=== PATIENT | male | born 1945 | race Hispanic/Latino ===

== ENCOUNTER 2016-06-05 12:32 | Day surgery (SDC) | payer MEDICARE ==
[~2016-06-05 12:32] MED LIST: CIPROFLOXACIN HCL 500 MG TABLET PO PRN
--- OUTSIDE RECORDS SUMMARY | 2016-06-05 12:36 | XMS REPORT | Continuity of Care Document ---
:1945 Author Organization [facility] ([facility]) Address [address] [place] [address] Phone [phone] Care Team Providers Name Role Phone Unavailable Primary Care Provider Unavailable Source Comments This disclosure is being made pursuant to the Care Everywhere program, applicable federal and state laws, and may not contain all informaitonavailable regarding this patient.[facility] ([facility]) Active Allergies and Adverse Reactions Not on File Current Medications Not on file Active Problems Not on file Social History Tobacco Use Types Packs/Day Years Used Date Never Assessed Plan of Care Health Maintenance Due Date Last Done Comments Hepatitis B Vaccine (1 of 3 - Primary Series) 1945 Tdap Vaccine 08/29/1954 Lipid Disorder Screening 08/29/1961 Td Vaccine 08/29/1961 Colonoscopy 08/29/1993 Prostate Cancer Screening 08/29/1993 Zoster Vaccine 2003 Pneumococcal Vaccine (1 of 2 - PCV13) 08/29/2008 Influenza Vaccine: Seasonal (#1) 09/23/2015 Results from Last 3 Months Not on file
[2016-06-05 14:10] VITALS: BP 145/99
[2016-06-05 14:17] LABS: Urine Bilirubin Negative (NEGATIVE); Urine Blood Negative /ul (NEGATIVE); Urine Ketone Negative (NEGATIVE); Urine Nitrite Negative (NEGATIVE); Urine Protein Negative (NEGATIVE); Urine Specific Gravity 1.015 SP.GR. (1.005-1.030); Urine Urobilinogen Normal (NORMAL); Urine pH 6.5 pH (5.0-7.0)
[2016-06-05 14:22] LABS: Urine Appearance Clear; Urine Bacteria None Seen; Urine Color Yellow; Urine RBC None Seen /hpf (0-5); Urine WBC None Seen /hpf (0-5)
== END 2016-06-05 12:33 | disposition home or self-care (01) ==
LOC: AMB 12:32
PROVIDERS: ATTEND Urology
PROC: 3E1K88X Irrigation of Genitourinary Tract using Irrigating Substance, Via Natural or Artificial Opening Endoscopic, Diagnostic (ICD-10-PCS; 2016-06-05)
PROC: 0TJB8ZZ Inspection of Bladder, Via Natural or Artificial Opening Endoscopic (ICD-10-PCS; principal; 2016-06-05 15:00)
DX: N40.1 Benign prostatic hyperplasia with lower urinary tract symptoms (principal); N13.8 Other obstructive and reflux uropathy; F17.210 Nicotine dependence, cigarettes, uncomplicated; Z68.22 Body mass index [BMI] 22.0-22.9, adult

== ENCOUNTER 2016-11-09 14:26 | Emergency (ER) | payer MEDICARE ==
[2016-11-09 14:33] VITALS: BP 147/95
== END 2016-11-09 15:22 | disposition left against medical advice (07) ==
LOC: ER 14:26
DX: Z53.21 Procedure and treatment not carried out due to patient leaving prior to being seen by health care provider (principal)

== ENCOUNTER 2016-12-12 12:13 | Emergency (ER) | payer MEDICARE ==
--- NOTE | 2016-12-12 12:28 | ERNOTE ---
Lower Extremity HPI - General Lower Extremities Pain: hip: left Time Seen by Provider: 12/12/16 12:18 Source: patient, EMS, RN notes reviewed Exam Limitations: no limitations - Immun/Allergies/Home Medications Immunizations: IMMUNIZATION HX Immunizations Up to Date Yes History of Influenza Vaccine Yes Hx Pneumococcal Vaccination Yes Allergies/Adverse Reactions: Allergies Allergy/AdvReac Type Severity Reaction Status Date / Time Iodinated Contrast- Oral and Allergy Severe Anaphylaxis Verified 11/09/16 14:33 IV Dye [Iodinated Contrast Media - IV Dye] coconut Allergy Verified 12/12/16 12:18 Home Medications: HOME MEDICATIONS HYDROcodone/ACETAMINOPHEN [Lanark 5-325 Tablet] 1 - 2 tab PO Q6H PRN #16 tab [Last Taken Unknown] - History of Present Illness Narrative: Patient was mowing the yard when he stepped in a mole hole and fell. He was unable to get to standing and is unable to place weight on the left leg. EMS were called and brought the patient in. Occurred: just prior to arrival Location of Incident: home Method of Injury: Reports: fell Reason for Fall: Reports: tripped Loss of Consciousness: Reports: no loss of consciousness Modifying Factors - (Worsens): Reports: jarring, movement Associated Symptoms: Reports: unable to bear weight Other Injuries: Reports: none Review of Systems - Review of Systems Constitutional: Absent: recent illness, fever, chills EYE: Present: no symptoms reported ENT: Present: no symptoms reported, ear pain Respiratory: Absent: shortness of breath, cough Cardiology: Absent: chest pain Gastrointestinal/Abdominal: Absent: nausea, vomiting, diarrhea, abdominal pain Genitourinary: Present: no symptoms reported Musculoskeletal: Present: joint pain - left hip Skin: Present: no symptoms reported Neurological: Present: no symptoms reported Endocrine: Present: no symptoms reported Hematologic/Lymphatic: Present: no symptoms reported Psych: Present: no symptoms reported - Patient's Past Medical History Patient History - Medical: Other Patient History - Cardiac/Respiratory: No pertinent hx Patient History - Cancer: No Hx of Cancer Patient History - Surgical Procedures: Colonoscopy, Other Patient History - Other: None - Family History Mother Family History - Medical: History Unknown Family History - Cardiac/Respiratory: History Unknown Family History - Cancer: History Unknown Father Family History - Medical: History Unknown Family History - Cardiac/Respiratory: History Unknown Family History - Cancer: History Unknown - Social History Living Situations: home Abuse History: No History of abuse Psych History: No pertinent hx Smoking Status: Current every day smoker Have you smoked in the past 12 months: Yes Do you dip or chew tobacco: No Patient requests Smoking Cessation Consult: No Alcohol Use: none Drug Use: none - Immunizations Immunizations Up to Date: Yes Hx Pneumococcal Vaccination: Yes History of Influenza Vaccine: Yes Physical Exam - Physical Exam General Appearance: Present: wd/wn, alert, mild distress Head Exam: Present: normal inspection, no evidence of injury Eye Exam: Normal inspection: bilateral, PERRL: bilateral, EOMI: bilateral Ears, Nose, Throat: Present: normal ENT inspection Neck: Present: normal inspection, nontender Respiratory: Present: no respiratory distress, normal breath sounds, no accessory muscle use, chest nontender, lungs clear Cardiovascular/Chest: Present: regular rate, rhythm, no murmur, normal peripheral pulses Gastrointestinal/Abdominal: Present: normal bowel sounds, nontender, nondistended, soft Back Exam: Present: normal inspection Extremity Exam: Present: decreased range of motion, bony tenderness Neurological Exam: Present: alert, oriented, normal mood/affect, no motor/ sensory deficits Skin Exam: Present: normal color, warm/dry ED Progress - Vital Signs Patient's Vital Signs:: I have reviewed the patient's vital signs. Vital Signs: Vital Signs 12/12/16 12:16 Temperature 37.4 C Pulse Rate 91 Respiratory 16 Rate Blood Pressure 158/117 O2 Sat by Pulse 94 Oximetry - X-Ray X-Ray #1 X-Ray: hip Interpretation: Interp. by me X-ray Comments: Left hip and pelvis What appears to be an avulsion fracture of the greater trochanter without intertrochanteric involvement - Progress/Reassessment Chief Complaint: Hip Pain/Injury Progress:: Unchanged Progress Note-Subjective: 12/12/16 13:44 I called and discussed this injury with Dr. Caldera, he advised that we could place the patient on crutches, give him pain medication, and he would see him this coming week and repeat the x-ray. I advised patient of Dr. Caldera's plans for him. Departure Clinical Impression: Closed avulsion fracture of left hip Qualifiers: Encounter type: initial encounter Qualified Code(s): S72.002A - Fracture of unspecified part of neck of left femur, initial encounter for closed fracture Fall at home Qualifiers: Encounter type: initial encounter Qualified Code(s): W19.XXXA - Unspecified fall, initial encounter; Y92.099 - Unspecified place in other non-institutional residence as the place of occurrence of the external cause; Y92.099 - Unspecified place in other non-institutional residence as the place of occurrence of the external cause - Departure Disposition: Home self-care Condition: Good Instructions: Hip Fracture, Fall Prevention in the Home, [id number] Referrals: Manuel Caldera MD [Staff Physician] - (Call Wednesday to arrange to be seen this coming week by Dr. Caldera. You should ask to be seen sooner if your pain is out of control or you absolutely cannot place any weight on that left foot.) Prescriptions: HYDROcodone/ACETAMINOPHEN [Lanark 5-325 Tablet] 1 - 2 tab PO Q6H PRN #16 tab PRN Reason: Pain
[2016-12-12 14:10] VITALS: BP 151/88
== END 2016-12-12 13:55 | disposition home or self-care (01) ==
LOC: ER 12:13
DX: S72.002A Fracture of unspecified part of neck of left femur, initial encounter for closed fracture (principal); W17.2XXA Fall into hole, initial encounter; Y93.H9 Activity, other involving exterior property and land maintenance, building and construction; Y92.007 Garden or yard of unspecified non-institutional (private) residence as the place of occurrence of the external cause; F17.200 Nicotine dependence, unspecified, uncomplicated

== ENCOUNTER 2016-12-22 10:38 | Inpatient (IN) | payer MEDICARE ==
[2016-12-22 19:42] LABS: Hematocrit 36.7 % (42.0-52.0); Hemoglobin 11.9 gm/dL (13.5-18.0); Mean Cell Volume 87.4 fl (78-100); Mean Corpuscular Hemoglobin 28.3 pg (27-31); Mean Corpuscular Hgb Conc 32.4 g/dl (32-36); Neutrophil # 6.6 K/mm3 (1.3-6.0); Platelet Count 234 K/mm3 (150-450); Red Cell Distribution Width 16.7 % (11.5-14.0); White Blood Count 9.6 K/mm3 (4.0-10.5)
[2016-12-22 19:50] LABS: Anion Gap 8.9 mmol/L (6.8-13.8); BUN/Creatinine Ratio 19.8 (9.0-21.6); Carbon Dioxide 28.8 mmol/L (24-32.6); Estimated Creat Clear 64.1; Potassium 3.7 mmol/L (3.4-4.6)
--- NOTE | 2016-12-22 21:56 | HP ---
Chief Complaint - Chief Complaint Date of Service: 12/22/16 Time of Service: 21:39 Chief Complaint: Left hip pain History of Present Illness: 2 or 3 weeks ago stepped in a hole at home landing on concrete with his left hip. He immediately had pain which persisted, but initial xrays were apparently not very impressive. Pain worsenened, and subsequent xrays demonstrated a left hip fracture requiring repair, therefore this admission, with plans for repair tomorrow. - Patient's Past Medical History Patient History - Medical: Other - BPH with obstructive uropathy, ED, Gait disturbance, FTT Patient History - Cardiac/Respiratory: Other - Palpitations Patient History - Cancer: No Hx of Cancer Patient History - Surgical Procedures: Colonoscopy, Total Hip Replacement, Total Knee Replacement, Other - Hemorrhoidectomy - Family History Mother Family History - Medical: History Unknown Family History - Cardiac/Respiratory: History Unknown Family History - Cancer: History Unknown Father Family History - Medical: History Unknown Family History - Cardiac/Respiratory: History Unknown Family History - Cancer: History Unknown Sister Family History - Cancer: Breast Brother Family History - Cardiac/Respiratory: Myocardial Infarction Family History - Cancer: Thyroid - Social History Abuse History: No History of abuse Psych History: No pertinent hx Smoking Status: Current every day smoker Have you smoked in the past 12 months: Yes Do you dip or chew tobacco: Yes Patient requests Smoking Cessation Consult: No Initiate information on Smoking Cessation: No - Immunizations Immunizations Up to Date: Yes Hx Pneumococcal Vaccination: Yes History of Influenza Vaccine: Yes Immunizations: IMMUNIZATION HX Immunizations Up to Date Yes History of Influenza Vaccine Yes Hx Pneumococcal Vaccination Yes Allergies/Adverse Reactions: Allergies Allergy/AdvReac Type Severity Reaction Status Date / Time Iodinated Contrast- Oral and Allergy Severe Anaphylaxis Verified 11/09/16 14:33 IV Dye [Iodinated Contrast Media - IV Dye] coconut Allergy Verified 12/12/16 12:18 Home Medications: HOME MEDICATIONS HYDROcodone/ACETAMINOPHEN [Sinclair 5-325 Tablet] 1 - 2 tab PO Q6H PRN #16 tab [Last Taken Unknown] Exam - Exam Vital Signs: Vital Signs - Last Taken Selected Entries 12/22/16 16:20 Temperature 36.8 C Temperature Temporal Artery Source Scan Pulse Rate 80 Pulse Rhythm Regular Pulse Strength Normal Respiratory 16 Rate Respiratory Normal Depth Respiratory Normal Effort Respiratory Normal Pattern Blood Pressure 177/90 Blood Pressure Supine Position O2 Sat by Pulse 94 Oximetry Oxygen Delivery Room Air Method Constitutional: Present: Alert, Oriented x3, Cooperative, Well developed, Well nourished, No distress ENT Exam: Present: normal ENT inspection, hearing grossly normal, pharynx normal Eye Exam: bilateral eye: normal inspection, PERRL, EOMI Neck: Present: normal inspection Back Exam: Present: normal inspection, no CVA tenderness, no vertebral tenderness Respiratory: Present: lungs clear, no respiratory distress Cardiovascular/Chest: Present: regular rate, rhythm, no chest tenderness Abdomen: Present: Normal bowel sounds, soft, nontender, nondistended, no rebound tenderness, no hepatospenomegaly, no masses Extremity: Present: normal inspection, other - hurts to move left leg Neurologic: Present: alert, oriented x 3 Appearance: Present: appropriate appearance, appropriate insight, neat, no memory impairment Eye contact: Present: cooperative, good eye contact, normal speech Thoughts: Present: normal thought pattern Diagnostic Studies: Abnormal Lab Results 12/22/16 12/22/16 Range/Units 19:40 19:40 RBC 4.20 L (4.7-6.0) M/mm3 Hgb 11.9 L (13.5-18.0) gm/dL Hct 36.7 L (42.0-52.0) % RDW 16.7 H (11.5-14.0) % Immature Gran % (Auto) 4.60 H (0.001-0.429) % Immature Gran # (Auto) 0.44 H (0.000-0.0310) K/mm3 Lymphocytes % 15.5 L (20-51) % Monocytes % 9.2 H (0.0-9) % Neutrophils # 6.6 H (1.3-6.0) K/mm3 Random Glucose 122 H (70-110) mg/dL Laboratory Results WBC 9.6 K/mm3 (4.0-10.5) 12/22/16 19:40 RBC 4.20 M/mm3 (4.7-6.0) L 12/22/16 19:40 Hgb 11.9 gm/dL (13.5-18.0) L 12/22/16 19:40 Hct 36.7 % (42.0-52.0) L 12/22/16 19:40 MCV 87.4 fl (78-100) 12/22/16 19:40 MCH 28.3 pg (27-31) 12/22/16 19:40 MCHC 32.4 g/dl (32-36) 12/22/16 19:40 RDW 16.7 % (11.5-14.0) H 12/22/16 19:40 Plt Count 234 K/mm3 (150-450) 12/22/16 19:40 MPV 9.0 fl (6.0-9.5) 12/22/16 19:40 Immature Gran % (Auto) 4.60 % (0.001-0.429) H 12/22/16 19:40 Immature Gran # (Auto) 0.44 K/mm3 (0.000-0.0310) H 12/22/16 19:40 Neutrophils % 69.0 % (42-75.0) 12/22/16 19:40 Lymphocytes % 15.5 % (20-51) L 12/22/16 19:40 Monocytes % 9.2 % (0.0-9) H 12/22/16 19:40 Eosinophils % 1.2 % (0.0-3.0) 12/22/16 19:40 Basophils % 0.5 % (0.0-1.0) 12/22/16 19:40 Nucleated RBC % 0.0 k/mm3 (0-1) 12/22/16 19:40 Neutrophils # 6.6 K/mm3 (1.3-6.0) H 12/22/16 19:40 Lymphocytes # 1.5 k/mm3 (1.5-3.5) 12/22/16 19:40 Monocytes # 0.9 k/mm3 (0.0-1.0) 12/22/16 19:40 Eosinophils # 0.1 k/mm3 (0.0-0.7) 12/22/16 19:40 Absolute Basophils 0.1 k/mm3 (0.0-0.1) 12/22/16 19:40 Sodium 139 mmol/L (132-142) 12/22/16 19:40 Plasma Sodium 139 mmol/L (130-142) 12/22/16 19:40 Potassium 3.7 mmol/L (3.4-4.6) 12/22/16 19:40 Chloride 105 mmol/L (97-106) 12/22/16 19:40 Carbon Dioxide 28.8 mmol/L (24-32.6) 12/22/16 19:40 Anion Gap 8.9 mmol/L (6.8-13.8) 12/22/16 19:40 BUN 21 mg/dL (6-23) 12/22/16 19:40 Creatinine 1.06 mg/dL (0.4-1.4) 12/22/16 19:40 Est GFR (Non-Af Amer) 73 mL/min (60-130) 12/22/16 19:40 BUN/Creatinine Ratio 19.8 (9.0-21.6) 12/22/16 19:40 Random Glucose 122 mg/dL (70-110) H 12/22/16 19:40 Calcium 9.0 mg/dL (7.9-10.9) 12/22/16 19:40 Assessment/Plan - Narrative Narrative: May proceed with surgical repair as planned. - Assessment/Plan (1) Closed left hip fracture Problem: Acute
[2016-12-22] MEDS: HYDROmorphone HCL 1 MG/ML DISP.SYRIN IV PRN (22:05)
[2016-12-23] MEDS: DEXTROSE 5%-NORMAL SALINE 1,000 ML IV PRN ×2 (00:18→10:32)
[2016-12-23] MEDS ORDERED: LORazepam 2 MG/ML DISP.SYRIN IV ONE (05:12)
[2016-12-23] MEDS: NICOTINE 21 MG PATC TD SCH (05:32)
[2016-12-23] MEDS: REMOVE PATCH 1 PATCH PATCH TP SCH (07:03)
--- NOTE | 2016-12-23 07:50 | PN ---
Subjective - Date and Time Seen Date: 12/23/16 Time: 07:44 Subjective Narrative: Very little pain. BP on the high side. Using nicotine patches. Able to ambulate bed to chair. Objective - Review of Systems Generalized/Overall Review: Reports: No Symptoms Reported EENTM: Reports: No Symptoms Reported Respiratory: Reports: No Symptoms Reported Cardiac: Reports: No Symptoms Reported Abdominal: Reports: No Symptoms Reported Genitourinary Symptoms: Reports: No Symptoms Reported Musculoskeletal Complaints: Reports: Joint Pain Neurological: Reports: No Symptoms Reported Skin: Reports: No Symptoms Reported Endocrine: Reports: No Symptoms Reported Misc: All systems neg except as marked - Vitals Vitals: Last Vital Signs Selected Entries 12/23/16 07:42 Temperature 36.7 C Pulse Rate 67 Respiratory 19 Rate Blood Pressure 161/86 O2 Sat by Pulse 94 Oximetry - Abnormal Lab Findings Abnormal Lab Findings: Abnormal Lab Results 12/22/16 12/22/16 Range/Units 19:40 19:40 RBC 4.20 L (4.7-6.0) M/mm3 Hgb 11.9 L (13.5-18.0) gm/dL Hct 36.7 L (42.0-52.0) % RDW 16.7 H (11.5-14.0) % Immature Gran % (Auto) 4.60 H (0.001-0.429) % Immature Gran # (Auto) 0.44 H (0.000-0.0310) K/mm3 Lymphocytes % 15.5 L (20-51) % Monocytes % 9.2 H (0.0-9) % Neutrophils # 6.6 H (1.3-6.0) K/mm3 Random Glucose 122 H (70-110) mg/dL - Exam Constitutional: Present: Alert, Oriented x3, Cooperative, Well developed, Well nourished, No distress ENT Exam: Present: normal ENT inspection, hearing grossly normal Neck: Present: normal inspection Respiratory: Present: lungs clear, normal breath sounds Cardiovascular/Chest: Present: regular rate, rhythm, no murmur Abdomen: Present: Normal bowel sounds, soft, nontender, nondistended, no rebound tenderness, no hepatospenomegaly, no masses Extremity: Present: no pedal edema, other - pain with movement of left hip Neurologic: Present: alert, oriented x 3 Appearance: Present: appropriate appearance, appropriate insight, neat, no memory impairment Eye contact: Present: cooperative, good eye contact, normal speech Thoughts: Present: normal thought pattern Assessment/Plan Plan Narrative: For hip fracture repair today. - Problems/Diagnosis (1) Closed left hip fracture Problem: Acute (2) Elevated blood pressure reading Problem: Acute (3) Nicotine abuse Problem: Chronic
[2016-12-23] MEDS ORDERED: ceFAZolin SODIUM 1 GM VIAL IV PRN (08:00)
--- NOTE | 2016-12-23 08:00 | CONS ---
[facility] - General Date of Service: 12/23/16 Narrative: Mr. Denson is a 71-year-old gentleman who fell approximately 2 weeks ago was seen in the emergency department. At that time he had x-rays which showed a minimally displaced greater trochanteric femur fracture on the left side. He was able to weight-bear with some pain was seen in my clinic. He had fallen again since his emergency department visit. Films were repeated and there is some concern that possibly the fracture extended into the intertrochanteric region. An MRI wasn't obtained which confirmed that this appeared to be a nondisplaced intertrochanteric femur fracture that was impending displacement. For this reason he was admitted for preoperative optimization for planned for prophylactic nailing of his left intertrochanteric femur fracture. He denies any new concerns or recent falls Source: patient - History of Present Illness Timing/Duration: constant Severity: mild Modifying Factors - (Worsens): Reports: movement Modifying Factors - (Improves): Reports: rest Associated Symptoms: denies symptoms Allergies/Adverse Reactions: Allergies Iodinated Contrast- Oral and IV Dye [Iodinated Contrast Media - IV Dye] Allergy (Severe, Verified 11/09/16 14:33) Anaphylaxis coconut Allergy (Verified 12/12/16 12:18) - Patient's Past Medical History Patient History - Medical: Other - BPH with obstructive uropathy, ED, Gait disturbance, FTT Patient History - Cardiac/Respiratory: Other - Palpitations Patient History - Surgical Procedures: Colonoscopy, Total Hip Replacement, Total Knee Replacement, Other - Hemorrhoidectomy - Family History Mother Family History - Medical: History Unknown Family History - Cardiac/Respiratory: History Unknown Family History - Cancer: History Unknown Father Family History - Medical: History Unknown Family History - Cardiac/Respiratory: History Unknown Family History - Cancer: History Unknown Sister Family History - Cancer: Breast Brother Family History - Cardiac/Respiratory: Myocardial Infarction Family History - Cancer: Thyroid - Social History Abuse History: No History of abuse Psych History: No pertinent hx Smoking Status: Current every day smoker Have you smoked in the past 12 months: Yes Do you dip or chew tobacco: Yes Patient requests Smoking Cessation Consult: No Initiate information on Smoking Cessation: No - Immunizations Immunizations Up to Date: Yes Hx Pneumococcal Vaccination: Yes History of Influenza Vaccine: Yes Procedures ARTHROCENTESIS (02/16/01) CONTRAST ARTHROGRAM (12/12/01) HIP SYNOVECTOMY (03/17/01) INSPECTION OF BLADDER, ENDO (06/05/16) IRRIGATION OF GENITOURINARY TRACT USING IRRIGAT, ENDO, DIAGN (06/05/16) REPAIR NOSE, PERCUTANEOUS APPROACH (02/06/16) REVISION OF HIP REPLACEMENT, NOT OTHERWISE SPECIFIED (03/17/01) Medications - Medications Current Medications: Current Medications Hydromorphone HCl (Dilaudid) 0.5 mg IV Q2H PRN PRN Reason: Moderate Pain Stop: 01/21/17 21:18 Last Admin: 12/22/16 22:05 Dose: 0.5 mg Dextrose/Sodium Chloride (Dextrose 5%-0.9% Ns) 1,000 mls @ 100 mls/hr IV .Q10H PRN PRN Reason: HYDRATION Stop: 01/22/17 00:02 Last Admin: 12/23/16 00:18 Dose: 100 mls/hr Nicotine (Nicoderm) 21 mg TD Q24H TAMI Stop: 01/22/17 06:01 Last Admin: 12/23/16 05:32 Dose: 21 mg Review of Systems - Review of Systems Narrative: Negative except for above Physical Examination - Exam Narrative: Left lower extremity: No gross deformity, motor is intact to hip knee and ankle. Sensation is intact light touch. Palpable dorsalis pedis pulse. No lacerations, ecchymosis, or abrasions to the hip. Pain with excessive hip range of motion. Vital Signs: Vital Signs - Last Taken Temp 36.7 C 12/23/16 07:42 Pulse 67 12/23/16 07:42 Resp 19 12/23/16 07:42 BP 161/86 12/23/16 07:42 Pulse Ox 94 12/23/16 07:42 O2 Oxygen Delivery Method Room Air Constitutional: Present: Alert, Oriented x3 - Results and Findings: Narrative: Prior hip films as well as MRI demonstrated a greater trochanteric fracture with edema and signs of extension into the lesser trochanteric region as reported by the radiologist on the MRI. Lab/Microbiology results last 24 hrs: Abnormal/Pending Laboratory Last 24 HRS 12/22/16 12/22/16 19:40 19:40 RBC 4.20 L Hgb 11.9 L Hct 36.7 L RDW 16.7 H Immature Gran % (Auto) 4.60 H Immature Gran # (Auto) 0.44 H Lymphocytes % 15.5 L Monocytes % 9.2 H Neutrophils # 6.6 H Random Glucose 122 H - Assessments/Findings (1) Intertrochanteric fracture of left hip Diagnosis(s): Plan is for several medullary fixation of this nondisplaced left intertrochanteric femur fracture. He'll be weightbearing as tolerated and range of motion as tolerated postoperatively. If he is quick to mobilize he will just need aspirin for DVT prophylaxis at home. Problem: Acute Qualifiers: Encounter type: initial encounter Fracture type: closed Fracture alignment: nondisplaced Qualified Code(s): S72.145A - Nondisplaced intertrochanteric fracture of left femur, initial encounter for closed fracture
[2016-12-23] MEDS ORDERED: RINGER'S SOLUTION,LACTATED 1,000 ML IV ONE (13:10)
[2016-12-23] MEDS ORDERED: DEXTROSE 5%-NORMAL SALINE 1,000 ML IV ONE (13:24)
[2016-12-23] MEDS ORDERED: ACETAMINOPHEN 500 MG TABLET PO PRN (13:42)
[2016-12-23] MEDS ORDERED: MAGNESIUM HYDROXIDE 30 ML UDC PO PRN (13:42)
[2016-12-23] MEDS ORDERED: MAG HYDROX/ALUMINUM HYD/SIMETH 30 ML UDC PO PRN (13:42)
[2016-12-23] MEDS ORDERED: DEXTROSE 5%-LACTATED RINGERS 1,000 ML IV PRN (13:42)
--- NOTE | 2016-12-23 13:46 | OR ---
Operative Report - Dictated Report Narrative: Date: 12/23/2016 Surgeon: Manuel Caldera M.D. Dixonac Operator: Jose Rivas PA-C Preoperative diagnosis: Closed nondisplaced left Intertrochanteric femur fracture Postoperative diagnosis: Closed nondisplaced left Intertrochanteric femur fracture Operations and procedures: 1. Cephalo-medullary fixation left intertrochanteric femur fracture 2. Intraoperative interpretation of radiographs Anesthesia: Spinal Specimens: None Estimated blood loss: 50 Milliliters Retained implants: [employer] Trigen InterTAN 130 degree size 10 mm by 18 centimeter nail with 95 millimeter lag screw and 90 millimeter compression screw , with distal locking screw Complications: None Indications for procedure: Mr. Denson is a 71-year-old gentleman who injured the left leg after recurrent home falls. They were admitted to the hospital after being evaluated in the Clinic. He was seen in emergency department and found to have a greater trochanteric femur fracture with concern for extension into the intertrochanteric region. An MRI was obtained which did reveal a nondisplaced intertrochanteric femur fracture and he was then admitted for preoperative optimization. Once the medical provider felt that they were stable for surgical treatment, the risks and benefits alternatives were discussed. The risks of , blood clots, bleeding, infection, nerve/tendon/blood vessel injury, malunion, nonunion, failure of implants, painful implants, arthrosis, and need for additional procedures were discussed. The extremity was marked and consent was obtained on the floor. Procedure: After marking the operative extremity on the floor, the patient was taken to the operating room. A timeout was performed. IV antibiotics consisting of Ancef were administered. A spinal anesthetic was induced by anesthesia, and the patient was then placed onto a fracture table with a well-padded perineal post. The nonoperative leg was placed in a well-padded traction boot in slight extension without any traction with an SCD on the leg. The operative leg was placed in a well-padded traction boot. As the fracture is not displaced no reduction was necessary. Preliminary images were attained utilizing C-arm in both the AP and lateral views. This confirmed that we had obtained adequate visualization of the fracture as well as reduction. Next the hip was then prepped and draped in a standard sterile fashion. Next the guidewire was placed percutaneously proximal to the greater trochanter to brook a starting point at the tip of the greater trochanter centered on the lateral view. This was passed down to the level below the lesser trochanter. A scalpel was utilized in order to dissect down to the greater trochanter in order to place the soft tissue protector down to bone. The entry drill was then placed down the proximal femur to the level of the lesser trochanter. The proper size nail was then selected and impacted into place. The outrigger was utilized in order to confirm the appropriate depth of the nail. Using the alignment device on the outrigger, a connie incision was made over the lateral femur. Sharp dissection was carried through the iliotibial band down to the proximal femur. The guidewire was was placed into the femoral head in a center-center position on AP and lateral views. The tip-apex distance of less than 25 mm combined was obtained. Once we felt that we had placed a guidewire in the appropriate position, it was measured. Next the compression screw site was drilled through the lateral femoral cortex. This was then drilled down to the appropriate depth, again confirming that we are within the confines the bone. The derotational bar was then placed and the lag screw was drilled. The lag screw was then secured in place seating fully ensuring that we were within the confines of the bone. The compression screw was then inserted. Using C-arm this was visualized to allow for compression across the fracture site. Once is felt that we had adequately stabilized the intertrochanteric fracture, the distal interlocking screw was placed in a dynamic position. It was confirmed to be the appropriate length and within the nail on both AP and lateral views. The nail was secured allowing for controlled compression and the outrigger was removed. The wounds were then thoroughly irrigated. Final images were obtained. The hip was placed through range of motion and showed no crepitance. The deep fascia was closed with 0 Vicryl, the subcutaneous tissue with 3-0 Vicryl, and the skin was closed with jakub. Sterile dressings of Xeroform, 4 x 4, ABD, and tape were applied. All sponge, sharp, and instrument counts were correct prior to closing the wounds. The patient was then awoken and transferred to the postanesthesia care unit in stable condition.
[2016-12-23] MEDS: ONDANSETRON HCL/PF 2 MG/ML VIAL IV PRN (15:10)
[2016-12-23] MEDS: HYDROcodone/ACETAMINOPHEN 1 EACH TABLET PO PRN ×3 (17:51→22:54)
[2016-12-23] MEDS: ceFAZolin SODIUM 1 GM in DEXTROSE 5 % IN WATER 100 ML IV SCH ×4 (17:51→23:49)
[2016-12-23] MEDS ORDERED: NORMAL SALINE 500 ML IV ONE (18:47)
[2016-12-23] MEDS: HYDROmorphone HCL 1 MG/ML DISP.SYRIN IV PRN (18:51)
[2016-12-23] MEDS: ASPIRIN 325 MG TABLET.DR PO SCH (20:33)
[2016-12-23] MEDS: SENNOSIDES/DOCUSATE SODIUM 1 TAB TABLET PO SCH (20:33)
[2016-12-24] MEDS: ONDANSETRON HCL/PF 2 MG/ML VIAL IV PRN ×2 (01:54→05:44)
[2016-12-24] MEDS: DEXTROSE 5%-NORMAL SALINE 1,000 ML IV PRN (02:37)
[2016-12-24] MEDS: HYDROcodone/ACETAMINOPHEN 1 EACH TABLET PO PRN (03:10)
[2016-12-24] MEDS: NICOTINE 21 MG PATC TD SCH (05:02)
[2016-12-24] MEDS: REMOVE PATCH 1 PATCH PATCH TP SCH (05:09)
[2016-12-24 06:02] LABS: Hematocrit 33.9 % (42.0-52.0); Hemoglobin 10.9 gm/dL (13.5-18.0); Mean Cell Volume 87.8 fl (78-100); Mean Corpuscular Hemoglobin 28.2 pg (27-31); Mean Corpuscular Hgb Conc 32.2 g/dl (32-36); Mean Platelet Volume 9.7 fl (6.0-9.5); Platelet Count 260 K/mm3 (150-450); Red Blood Count 3.86 M/mm3 (4.7-6.0); Red Cell Distribution Width 16.5 % (11.5-14.0)
[2016-12-24 06:15] LABS: Anion Gap 11.5 mmol/L (6.8-13.8); BUN/Creatinine Ratio 11.8 (9.0-21.6); Calcium * 8.7 mg/dL (7.9-10.9); Carbon Dioxide 27.9 mmol/L (24-32.6); Estimated Creat Clear 79.9; Potassium 3.4 mmol/L (3.4-4.6)
[2016-12-24] MEDS: ceFAZolin SODIUM 1 GM in DEXTROSE 5 % IN WATER 100 ML IV SCH ×2 (06:43)
[2016-12-24] MEDS ORDERED: PROMETHAZINE HCL 12.5 MG in DEXTROSE 5 % IN WATER 50 ML IV PRN ×2 (07:18)
--- NOTE | 2016-12-24 07:47 | PN ---
Subjective - Date and Time Seen Date: 12/24/16 Time: 07:46 Subjective Narrative: Very little pain. BP on the high side. Using nicotine patches. Able to ambulate bed to chair. nauseated. malnutrition even before admission. Objective - Review of Systems Generalized/Overall Review: Reports: Malaise EENTM: Reports: No Symptoms Reported Respiratory: Reports: No Symptoms Reported Cardiac: Reports: Other - high bp Abdominal: Reports: Nausea, Vomiting Genitourinary Symptoms: Reports: No Symptoms Reported Musculoskeletal Complaints: Reports: Joint Pain Neurological: Reports: No Symptoms Reported Skin: Reports: No Symptoms Reported Endocrine: Reports: No Symptoms Reported Misc: All systems neg except as marked - Vitals Vitals: Last Vital Signs Temp 36.3 C L 12/24/16 06:26 Pulse 80 12/24/16 06:26 Resp 20 12/24/16 06:26 BP 163/101 12/24/16 06:26 Pulse Ox 95 12/24/16 06:26 - Abnormal Lab Findings Abnormal Lab Findings: Abnormal Lab Results Selected Entries 12/23/16 12/24/16 12/24/16 22:26 00:18 02:26 Temperature Temperature Source Pulse Rate Respiratory Rate Blood Pressure 171/112 146/100 150/94 Blood Pressure Position O2 Sat by Pulse Oximetry Oxygen Delivery Method 12/24/16 12/24/16 04:23 06:26 Temperature 36.3 C L Temperature Oral Source Pulse Rate 80 Respiratory 20 Rate Blood Pressure 154/92 163/101 Blood Pressure Supine Position O2 Sat by Pulse 95 Oximetry Oxygen Delivery Room Air Method - Exam Constitutional: Present: Alert, Oriented x3, Cooperative, Well developed, No distress ENT Exam: Present: normal ENT inspection, hearing grossly normal Neck: Present: normal inspection Cardiovascular/Chest: Present: regular rate, rhythm, no murmur Abdomen: Present: Normal bowel sounds, soft, nontender, nondistended, no rebound tenderness, no hepatospenomegaly, no masses Extremity: Present: normal inspection, no pedal edema, other - pain with movement of left leg Neurologic: Present: alert, oriented x 3 Appearance: Present: appropriate appearance, appropriate insight, neat, no memory impairment Eye contact: Present: cooperative, good eye contact, normal speech Thoughts: Present: normal thought pattern Cauti Physician Documentation - Urinary Catheter Management Urethral (Simpson) Date of Insertion: 12/23/16 Time of Insertion: 12:50 Assessment/Plan Plan Narrative: antiemetics. antihypertensives. postop protocol. technologies division chair consult. remeron. valencia. - Problems/Diagnosis (1) Closed left hip fracture Problem: Acute (2) Elevated blood pressure reading Problem: Acute (3) Nicotine abuse Problem: Chronic (4) Vomiting Problem: Acute Qualifiers: Vomiting type: unspecified Vomiting Intractability: unspecified Nausea presence: with nausea Qualified Code(s): R11.2 - Nausea with vomiting, unspecified (5) Malnutrition Problem: Chronic Qualifiers: Malnutrition type: protein-calorie malnutrition
[2016-12-24] MEDS ORDERED: traMADol HCL 50 MG TABLET PO PRN (08:00)
--- NOTE | 2016-12-24 08:06 | PN ---
Subjective - Date and Time Seen Date: 12/24/16 Time: 08:01 Subjective Narrative: Subjective: Reports nausea with little pain. Was able to get to the chair with therapy. Pain is well-controlled. He had some decreased urinary output last night. Tolerating by mouth intake. Denies calf pain. Slept well. Physical exam: Alert and oriented to person, place and time Left lower Extremity: Palpable dorsalis pedis pulse. Sensation grossly intact to light touch. Dressings clean and dry. Able to flex and extend ankle and toes. No excessive drainage. Calf and thigh are soft and nontender. Assessment: Postop day 1 status post left hip cephalo-medullary fixation of nondisplaced intertrochanteric femur fracture. Plan: Continue with physical and occupational therapy weightbearing as tolerated. Continue with anticoagulation - aspirin 325 mg twice a day for 6 weeks. 24 hours postoperative prophylactic antibiotics. Pain control with goal to rely on oral medications - discontinued the [place] and changed to Ultram. Continue bowel regimen. Will need 6 weeks with walker or assitive device to protect joint while ambulating during the recovery process. Discharge planning - okay to discharge home today from an orthopedic standpoint. He will follow-up in 2 weeks with orthopedics. He is to keep his wound clean and dry and cover with dry gauze and tape. If there is no drainage she can change this every 3-4 days as needed if there is any drainage change daily. Wears WEI hose on his surgical side postoperatively. Objective - Vitals Vitals: Last Vital Signs Temp 36.3 C L 12/24/16 06:26 Pulse 80 12/24/16 06:26 Resp 20 12/24/16 06:26 BP 163/101 12/24/16 06:26 Pulse Ox 95 12/24/16 06:26 - Abnormal Lab Findings Abnormal Lab Findings: Abnormal Lab Results 12/24/16 12/24/16 Range/Units 05:55 05:55 WBC 11.0 H (4.0-10.5) K/mm3 RBC 3.86 L (4.7-6.0) M/mm3 Hgb 10.9 L (13.5-18.0) gm/dL Hct 33.9 L (42.0-52.0) % RDW 16.5 H (11.5-14.0) % MPV 9.7 H (6.0-9.5) fl Random Glucose 143 H (70-110) mg/dL Cauti Physician Documentation - Urinary Catheter Management Urethral (Simpson) Date of Insertion: 12/23/16 Time of Insertion: 12:50 Assessment/Plan - Problems/Diagnosis (1) Intertrochanteric fracture of left hip Problem: Acute Qualifiers: Encounter type: subsequent encounter Fracture type: closed Fracture alignment: nondisplaced Fracture healing: with routine healing Qualified Code(s): S72.145D - Nondisplaced intertrochanteric fracture of left femur, subsequent encounter for closed fracture with routine healing
[2016-12-24] MEDS: MIRTAZAPINE 15 MG TABLET PO SCH ×2 (08:26→20:37)
[2016-12-24] MEDS: MEGESTROL ACETATE 40 MG/ML BTL PO SCH ×2 (09:45)
[2016-12-24] MEDS: PROPRANOLOL HCL 20 MG TABLET PO SCH ×4 (09:46→20:36)
[2016-12-24] MEDS: ASPIRIN 325 MG TABLET.DR PO SCH ×2 (09:46→20:37)
[2016-12-24] MEDS: SOLIFENACIN SUCCINATE 10 MG TABLET PO SCH (09:48)
[2016-12-24] MEDS: SENNOSIDES/DOCUSATE SODIUM 1 TAB TABLET PO SCH (20:36)
[2016-12-25] MEDS: NICOTINE 21 MG PATC TD SCH (05:30)
[2016-12-25] MEDS: REMOVE PATCH 1 PATCH PATCH TP SCH (05:32)
[2016-12-25 05:48] LABS: Hematocrit 30.7 % (42.0-52.0); Hemoglobin 9.8 gm/dL (13.5-18.0); Mean Cell Volume 89.2 fl (78-100); Mean Corpuscular Hemoglobin 28.5 pg (27-31); Mean Corpuscular Hgb Conc 31.9 g/dl (32-36); Mean Platelet Volume 9.8 fl (6.0-9.5); Platelet Count 228 K/mm3 (150-450); Red Blood Count 3.44 M/mm3 (4.7-6.0); Red Cell Distribution Width 16.5 % (11.5-14.0); White Blood Count 11.1 K/mm3 (4.0-10.5)
[2016-12-25 05:54] LABS: Anion Gap 9.1 mmol/L (6.8-13.8); BUN/Creatinine Ratio 16.1 (9.0-21.6); Calcium * 8.8 mg/dL (7.9-10.9); Carbon Dioxide 29.3 mmol/L (24-32.6); Estimated Creat Clear 78.1; Potassium 3.4 mmol/L (3.4-4.6)
--- NOTE | 2016-12-25 06:55 | DS ---
(1) Closed left hip fracture Diagnosis(s): Closed nondisplaced left Intertrochanteric femur fracture Problem: Acute (2) Elevated blood pressure reading Problem: Acute (3) Nicotine abuse Problem: Chronic (4) Vomiting Problem: Acute Qualifiers: Vomiting type: unspecified Vomiting Intractability: unspecified Nausea presence: with nausea Qualified Code(s): R11.2 - Nausea with vomiting, unspecified (5) Malnutrition Problem: Chronic Qualifiers: Malnutrition type: protein-calorie malnutrition Description of Stay: Hip fracture repaired without incident. Patient was reluctant to eat at home, and this continued in the hospital. Patient continued to want to smoke within the hospital. BP was well controlled with medication in the hospital. Procedures Performed: see notes below - Cephalo-medullary fixation left intertrochanteric femur fracture.Intraoperative interpretation of radiographs. Discharge Disposition: Home self care Disposition: Home self-care Condition: Fair Discharge Activity: Activity as tolerated Discharge Diet: General/regular food Longterm Therapy: Physicial Therapy Referrals: Zach Peterson MD [Primary Care Provider] - Problem Oriented Discharge Instructions to Patient/Family: Hip Fracture Additional Patient Instructions (free text): Please make TCM appointment at discharge, if applicable. Thank you! [email or web address]. Home health for Physical Therapy Ortho in 2 weeks. Hector in 2 weeks. Walker for 6 weeks. Tylenol 650 mg four times daily as needed for pain. Ultram 50 mg four times daily as needed for pain not controlled by tylenol. Dry gauze and tape to wound every three days or daily if needed. Aspirin 325 mg twice daily for 6 weeks. WEI hose on surgical side. Prescriptions (Any new or edited meds): Acetaminophen [Tylenol] 650 mg PO QID PRN #1 tablet PRN Reason: Mild Pain Megestrol Acetate [Megace Suspension] 800 mg PO DAILY #1 btl Mirtazapine [Remeron] 30 mg PO HS #30 tablet Multivit,Iron,Mins/Folic Acid [[facility] Heart Tab] 1 each PO DAILY # 30 tablet Propranolol HCl [Inderal] 20 mg PO QID #120 tablet traMADol HCL [Ultram] 50 mg PO QID PRN #30 tablet PRN Reason: Moderate Pain Complete Home Medications List: Complete Home Medication List: Acetaminophen [Tylenol] 650 mg PO QID PRN #1 tablet 12/25/16 Aspirin [Aspirin Enteric Coated] 325 mg PO BID tablet. 12/25/16 Mag Hydrox/Aluminum Hyd/Simeth [Maalox Plus Suspension] 30 ml PO Q6H PRN udc Megestrol Acetate [Megace Suspension] 800 mg PO DAILY #1 btl 12/25/16 Mirtazapine [Remeron] 30 mg PO HS #30 tablet 12/25/16 Multivit,Iron,Mins/Folic Acid [[facility] Heart Tab] 1 each PO DAILY # 30 tablet 12/25/16 Propranolol HCl [Inderal] 20 mg PO QID #120 tablet 12/25/16 traMADol HCL [Ultram] 50 mg PO QID PRN #30 tablet 12/25/16
[2016-12-25 08:18] VITALS: BP 126/68
[2016-12-25] MEDS: SOLIFENACIN SUCCINATE 10 MG TABLET PO SCH (08:25)
[2016-12-25] MEDS: MEGESTROL ACETATE 40 MG/ML BTL PO SCH (08:25)
[2016-12-25] MEDS: PROPRANOLOL HCL 20 MG TABLET PO SCH (08:25)
[2016-12-25] MEDS: ASPIRIN 325 MG TABLET.DR PO SCH (08:25)
== END 2016-12-25 10:45 | disposition home health service (06) | DRG 481 ==
LOC: RAD 10:38 → MS 16:05
PROVIDERS: ADMIT Allergy & Immunology; ATTEND Allergy & Immunology
PROC: 0QH736Z Insertion of Intramedullary Internal Fixation Device into Left Upper Femur, Percutaneous Approach (ICD-10-PCS; principal; 2016-12-23 13:00)
DX: S72.092A Other fracture of head and neck of left femur, initial encounter for closed fracture (principal); E46 Unspecified protein-calorie malnutrition; Z68.1 Body mass index [BMI] 19.9 or less, adult; W01.198A Fall on same level from slipping, tripping and stumbling with subsequent striking against other object, initial encounter; Z91.81 History of falling; Y92.007 Garden or yard of unspecified non-institutional (private) residence as the place of occurrence of the external cause; R03.0 Elevated blood-pressure reading, without diagnosis of hypertension; R11.2 Nausea with vomiting, unspecified; F17.210 Nicotine dependence, cigarettes, uncomplicated
CPT/HCPCS: 27245; 36415; 73502; 73721; 76000; 80048; 85025; 85027; 93005; 97110; 97116; 97162; 97166; 97530; J2405

== ENCOUNTER 2016-12-27 00:27 | Inpatient (IN) | payer MEDICARE ==
[2016-12-27 01:10] LABS: Hematocrit 30.9 % (42.0-52.0); Hemoglobin 9.8 gm/dL (13.5-18.0); Mean Corpuscular Hemoglobin 27.9 pg (27-31); Mean Corpuscular Hgb Conc 31.7 g/dl (32-36); Mean Platelet Volume 9.7 fl (6.0-9.5); Platelet Count 285 K/mm3 (150-450); Red Blood Count 3.51 M/mm3 (4.7-6.0); Red Cell Distribution Width 16.6 % (11.5-14.0)
[2016-12-27 01:14] LABS: Total Cells Counted 100
--- NOTE | 2016-12-27 01:14 | HP ---
Chief Complaint - Chief Complaint Date of Service: 12/27/16 Time of Service: 01:06 Chief Complaint: " Weakness". Source of HPI- Pt; unreliable due to AMS, ERP report, pt's spouse Leny. History of Present Illness: Mr. Denson is a 71-yr-old Male pt of Dr. Zach Rivera who had LT hip fracture repair on 12/23/16 at [facility] following a fall. He was discharged home from the hospital on 12/25. states that since being discharged home, his ambulation has been very poor and when he walks with his walker, he delaney. Home health PT sessions were yet to be started on Wednesday. Tonight, he had such a difficulty getting up from the toilet. He could not lift himself up and so she called the EMS squad for him. reports that his "mind has not been all there" since being discharged. He has had no fever or chills. At the ED, he was found to have a WBC of 17,000 with 15 bands. The CXR showed LLL Pneumonia. UA is pending. He will be admitted for HCAP. - Patient's Past Medical History Patient History - Medical: Other - BPH Patient History - Cardiac/Respiratory: Other Patient History - Surgical Procedures: Colonoscopy, Total Hip Replacement, Total Knee Replacement, Other - Family History Mother Family History - Medical: History Unknown Family History - Cardiac/Respiratory: History Unknown Family History - Cancer: History Unknown Father Family History - Medical: History Unknown Family History - Cardiac/Respiratory: History Unknown Family History - Cancer: History Unknown Sister Family History - Cancer: Breast Brother Family History - Cardiac/Respiratory: Myocardial Infarction Family History - Cancer: Thyroid - Social History Abuse History: No History of abuse Psych History: No pertinent hx Smoking Status: Current every day smoker - Immunizations Immunizations Up to Date: Yes Hx Pneumococcal Vaccination: Yes History of Influenza Vaccine: No Review Of Systems (GEN) - Review of Systems Generalized/Overall Review: Present: Weakness. Absent: Chills, Fever EENTM: Present: No Symptoms Reported Respiratory: Present: Cough. Absent: Shortness of Breath, Orthopnea Cardiac: Absent: Chest Pain, Edema, Palpitations Abdominal: Present: Diarrhea. Absent: Nausea, Vomiting, Hematemesis, Abdominal Pain, Constipation Genitourinary: Absent: Burning, Itching, Urgency, Frequency Musculoskeletal: Present: Joint Pain. Absent: Back Pain Neurological: Absent: Headache, Anxiety, Depressed Skin: Absent: Dryness, Lesions, Lumps Endocrine: Present: Intolerance to Cold Misc: All systems neg except as marked Allergies/Adverse Reactions: Allergies Allergy/AdvReac Type Severity Reaction Status Date / Time Iodinated Contrast- Oral and Allergy Severe Anaphylaxis Verified 12/27/16 00:28 IV Dye [Iodinated Contrast Media - IV Dye] coconut Allergy Verified 12/27/16 00:28 Home Medications: HOME MEDICATIONS Acetaminophen [Tylenol] 650 mg PO QID PRN #1 tablet 12/25/16 [Last Taken Unknown ] Aspirin [Aspirin Enteric Coated] 325 mg PO BID tablet. 12/25/16 [Last Taken Unknown] Mag Hydrox/Aluminum Hyd/Simeth [Maalox Plus Suspension] 30 ml PO Q6H PRN udc [Last Taken Unknown] Megestrol Acetate [Megace Suspension] 800 mg PO DAILY #1 btl 12/25/16 [Last Taken Unknown] Mirtazapine [Remeron] 30 mg PO HS #30 tablet 12/25/16 [Last Taken Unknown] Multivit,Iron,Mins/Folic Acid [[facility] Heart Tab] 1 each PO DAILY # 30 tablet 12/25/16 [Last Taken Unknown] Propranolol HCl [Inderal] 20 mg PO QID #120 tablet 12/25/16 [Last Taken Unknown] traMADol HCL [Ultram] 50 mg PO QID PRN #30 tablet 12/25/16 [Last Taken Unknown] Exam - Exam Vital Signs: Vital Signs - Last Taken Temp 37.3 C 12/27/16 00:29 Pulse 81 12/27/16 01:36 CDT Resp 30 H 12/27/16 01:36 CDT BP 114/63 12/27/16 01:36 CDT Pulse Ox 92 12/27/16 01:36 CDT Constitutional: Present: Oriented x3, No distress, Lethargic ENT Exam: Present: normal ENT inspection. Absent: nasal drainage, pharyngeal erythema Eye Exam: bilateral eye: normal inspection, PERRL Neck: Present: non-tender, full range of motion Back Exam: Present: normal inspection Breasts: Present: Exam deferred Respiratory: Present: no accessory muscle use, decreased breath sounds, No wheezing Cardiovascular/Chest: Present: systolic murmur, irregularly irregular Abdomen: Present: Normal bowel sounds, soft, nontender /Rectal: Present: Exam deferred Extremity: Present: other - Surgical site on LT hip dry and intact. No redness, warmth, and drainage. Skin Exam: Present: warm/dry, no cyanosis Lymphatic: Present: no adenopathy Neurologic: Present: alert, depressed affect Appearance: Present: appropriate appearance, impaired insight Eye contact: Present: cooperative Thoughts: Present: no apparent hallucination Diagnostic Studies: Laboratory Results WBC 17.0 K/mm3 (4.0-10.5) H D 12/27/16 01:05 FUR DYER RBC 3.51 M/mm3 (4.7-6.0) L 12/27/16 01:05 FUR DYER Hgb 9.8 gm/dL (13.5-18.0) L 12/27/16 01:05 FUR DYER Hct 30.9 % (42.0-52.0) L 12/27/16 01:05 FUR DYER MCV 88.0 fl (78-100) 12/27/16 01:05 FUR DYER MCH 27.9 pg (27-31) 12/27/16 01:05 FUR DYER MCHC 31.7 g/dl (32-36) L 12/27/16 01:05 FUR DYER RDW 16.6 % (11.5-14.0) H 12/27/16 01:05 FUR DYER Plt Count 285 K/mm3 (150-450) 12/27/16 01:05 FUR DYER MPV 9.7 fl (6.0-9.5) H 12/27/16 01:05 FUR DYER Neutrophils % (Manual) 65 % (42-75) 12/27/16 01:05 FUR DYER Band Neuts % (Manual) 15 % (0-2.0) H 12/27/16 01:05 FUR DYER Lymphocytes % (Manual) 7 % (20-51) L 12/27/16 01:05 FUR DYER Monocytes % (Manual) 13 % (0-9) H 12/27/16 01:05 FUR DYER Neutrophils # (Manual) 11.1 K/mm3 (1.3-6.0) H 12/27/16 01:05 FUR DYER Lymphocytes # (Manual) 1.2 k/mm3 (1.5-3.5) L 12/27/16 01:05 FUR DYER Monocytes # (Manual) 2.2 k/mm3 (0.0-1.0) H 12/27/16 01:05 FUR DYER Hypersegmented Polys 2+ 12/27/16 01:05 FUR DYER Toxic Vacuolation 1+ 12/27/16 01:05 FUR DYER Platelet Estimate Increased (NORMAL) H 12/27/16 01:05 FUR DYER Microcytosis 2+ 12/27/16 01:05 FUR DYER Target Cells 1+ 12/27/16 01:05 FUR DYER Rouleaux 2+ 12/27/16 01:05 FUR DYER Sodium 141 mmol/L (132-142) 12/27/16 01:05 FUR DYER Plasma Sodium 141 mmol/L (130-142) 12/27/16 01:05 FUR DYER Potassium 3.4 mmol/L (3.4-4.6) 12/27/16 01:05 FUR DYER Chloride 107 mmol/L (97-106) H 12/27/16 01:05 FUR DYER Carbon Dioxide 25.1 mmol/L (24-32.6) 12/27/16 01:05 FUR DYER Anion Gap 12.3 mmol/L (6.8-13.8) 12/27/16 01:05 FUR DYER BUN 24 mg/dL (6-23) H D 12/27/16 01:05 FUR DYER Creatinine 1.07 mg/dL (0.4-1.4) 12/27/16 01:05 FUR DYER Est GFR (Non-Af Amer) 72 mL/min (60-130) D 12/27/16 01:05 FUR DYER BUN/Creatinine Ratio 22.4 (9.0-21.6) H 12/27/16 01:05 FUR DYER Random Glucose 90 mg/dL (70-110) 12/27/16 01:05 FUR DYER Lactic Acid, Venous 1.8 mmol/L (0.4-1.9) 12/27/16 01:05 FUR DYER Calcium 9.0 mg/dL (7.9-10.9) 12/27/16 01:05 FUR DYER Calcium Adj for Albumin 9.9 mg/dL (8.4-10.2) 12/27/16 01:05 FUR DYER Total Bilirubin 1.2 mg/dL (0.0-1.1) H 12/27/16 01:05 FUR DYER AST 14 U/L (0-48) 12/27/16 01:05 FUR DYER ALT 10 U/L (19-67) L 12/27/16 01:05 FUR DYER Alkaline Phosphatase 125 U/L (50-170) 12/27/16 01:05 FUR DYER C-Reactive Prot, Quant 23.5 mg/dL (0.0-0.9) H 12/27/16 01:15 FUR DYER Total Protein 6.1 gm/dL (6.2-8.2) L 12/27/16 01:05 FUR DYER Albumin 2.5 gm/dl (3.4-5.0) L 12/27/16 01:05 FUR DYER Procalcitonin 0.18 ng/mL (0.05-0.50) 12/27/16 01:05 FUR DYER Assessment/Plan - Assessment/Plan (1) Pneumonia Assessment: The CXR had consolidation on LLL which was concerning for Pneumonia and WBC was elevated at 17,000 with 15 bands. Will treat as HCAP and start him on Cefepime. Blood cultures are pending. Push cornet q 2 hrs. Monitor V.S and CBC in am. Problem: Acute Qualifiers: Laterality: left (2) Acute encephalopathy Assessment: AMS likely due to dehydration, infection, or anesthesia. Will start IV antibiotics, IVF hydration. Should see an improvement when problems resolve. Problem: Acute (3) Generalized weakness Assessment: Involve PT/OT, Encourage ambulation. Will likely need and benefit from skilled placement at discharge. Will have case mgt assist. Problem: Chronic (4) Leukocytosis Assessment: ? Pneumonia, UTI, Surgical site- is intact without redness, drainage and hotness. UA is pending. Monitor CBC. Laboratory Tests 12/27/16 01:15 FUR DYER C-Reactive Prot, Quant 23.5 H Laboratory Tests 12/27/16 01:05 FUR DYER WBC 17.0 H D Band Neuts % (Manual) 15 H Problem: Acute
[2016-12-27] MEDS ORDERED: NORMAL SALINE 500 ML IV ONE (01:17)
--- NOTE | 2016-12-27 01:17 | ERNOTE ---
Medical Problem HPI - Narrative Date of Service: 12/27/16 - General Chief Complaint: General Assessment Time Seen by Provider: 12/27/16 00:52 Source: patient Exam Limitations: no limitations - Immun/Allergies/Home Medications Immunizations: IMMUNIZATION HX Immunizations Up to Date Yes History of Influenza Vaccine No Hx Pneumococcal Vaccination Yes Allergies/Adverse Reactions: Allergies Iodinated Contrast- Oral and IV Dye [Iodinated Contrast Media - IV Dye] Allergy (Severe, Verified 12/27/16 00:28) Anaphylaxis coconut Allergy (Verified 12/27/16 00:28) Home Medications: HOME MEDICATIONS Acetaminophen [Tylenol] 650 mg PO QID PRN #1 tablet 12/25/16 [Last Taken Unknown ] Aspirin [Aspirin Enteric Coated] 325 mg PO BID tablet. 12/25/16 [Last Taken Unknown] Mag Hydrox/Aluminum Hyd/Simeth [Maalox Plus Suspension] 30 ml PO Q6H PRN udc [Last Taken Unknown] Megestrol Acetate [Megace Suspension] 800 mg PO DAILY #1 btl 12/25/16 [Last Taken Unknown] Mirtazapine [Remeron] 30 mg PO HS #30 tablet 12/25/16 [Last Taken Unknown] Multivit,Iron,Mins/Folic Acid [Centrum Specialist Heart Tab] 1 each PO DAILY # 30 tablet 12/25/16 [Last Taken Unknown] Propranolol HCl [Inderal] 20 mg PO QID #120 tablet 12/25/16 [Last Taken Unknown] traMADol HCL [Ultram] 50 mg PO QID PRN #30 tablet 12/25/16 [Last Taken Unknown] - History of Present History Narrative: This is a 71-year-old male who had left hip surgery with Dr. Becerril 5 days ago. Patient is brought in via ambulance for progressive weakness and he states that when he tries to get up and go to the bathroom his legs give out on him.He has been eating and drinking less Review of Systems - Review of Systems Constitutional: Present: fatigue, malaise EYE: Present: no symptoms reported ENT: Present: no symptoms reported Respiratory: Present: no symptoms reported Cardiology: Present: no symptoms reported Gastrointestinal/Abdominal: Present: See HPI Genitourinary: Present: no symptoms reported Musculoskeletal: Present: no symptoms reported Skin: Present: no symptoms reported - Patient's Past Medical History Patient History - Medical: Other Patient History - Cardiac/Respiratory: Other Patient History - Surgical Procedures: Colonoscopy, Total Hip Replacement, Total Knee Replacement, Other - Family History Mother Family History - Medical: History Unknown Family History - Cardiac/Respiratory: History Unknown Family History - Cancer: History Unknown Father Family History - Medical: History Unknown Family History - Cardiac/Respiratory: History Unknown Family History - Cancer: History Unknown Sister Family History - Cancer: Breast Brother Family History - Cardiac/Respiratory: Myocardial Infarction Family History - Cancer: Thyroid - Social History Abuse History: No History of abuse Psych History: No pertinent hx Smoking Status: Current every day smoker - Immunizations Immunizations Up to Date: Yes Hx Pneumococcal Vaccination: Yes History of Influenza Vaccine: No Physical Exam - Physical Exam General Appearance: Present: other Ears, Nose, Throat: Present: normal ENT inspection, normal pharynx Respiratory: Present: no respiratory distress, normal breath sounds, no accessory muscle use, chest nontender, lungs clear Cardiovascular/Chest: Present: regular rate, rhythm, no murmur, normal peripheral pulses Extremity Exam: Present: normal inspection - site of operation appears normal for stage age from surgery Neurological Exam: Present: alert, oriented, normal mood/affect, other - appears very lethargic ED Progress - Results and Orders Patient's Lab Results:: I have reviewed the patient's lab results. - Vital Signs Patient's Vital Signs:: I have reviewed the patient's vital signs. Vital Signs: Vital Signs 12/27/16 00:29 Temperature 37.3 C Pulse Rate 82 Respiratory 18 Rate Blood Pressure 112/60 O2 Sat by Pulse 94 Oximetry - X-Ray X-Ray #1 X-Ray: chest - small left lower lobe opacity noted on PA - Progress/Reassessment Chief Complaint: General Assessment Plan - Plan Plan: This patient is too lethargic to go home. also his WBC is 17.1 with 15 bands. He will be admitted to Medicine service for observation. Hospitalist was consulted for admit. Departure Clinical Impression: Lethargy Leukocytosis Qualifiers: Leukocytosis type: unspecified Qualified Code(s): D72.829 - Elevated white blood cell count, unspecified - Departure Disposition: [facility] Condition: Stable
[2016-12-27 01:19] LABS: Band 15 % (0-2.0); Hypersegmented Polys 2+; Lymphocyte 7 % (20-51); Monocyte 13 % (0-9); Neutrophil 65 % (42-75); Neutrophil # 11.1 K/mm3 (1.3-6.0); Platelet Estimate Increased (NORMAL)
[2016-12-27 01:20] LABS: Microcytosis 2+; Rouleaux 2+; Target Cells 1+
[2016-12-27 01:33] LABS: Albumin * 2.5 gm/dl (3.4-5.0); Anion Gap 12.3 mmol/L (6.8-13.8); BUN/Creatinine Ratio 22.4 (9.0-21.6); Bilirubin, Total 1.2 mg/dL (0.0-1.1); Ca. Corrected For Albumin 9.9 mg/dL (8.4-10.2); Carbon Dioxide 25.1 mmol/L (24-32.6); Potassium 3.4 mmol/L (3.4-4.6); Total Protein 6.1 gm/dL (6.2-8.2)
[2016-12-27] MEDS ORDERED: ACETAMINOPHEN 500 MG TABLET PO PRN (01:59)
[2016-12-27] MEDS ORDERED: MAG HYDROX/ALUMINUM HYD/SIMETH 30 ML UDC PO PRN (01:59)
[2016-12-27] MEDS ORDERED: NORMAL SALINE 1,000 ML IV ONE (02:14)
[2016-12-27] MEDS: CEFEPIME HCL 2 GM in DEXTROSE 5 % IN WATER 100 ML IV SCH ×4 (02:28→16:10)
[2016-12-27 05:49] LABS: Hematocrit 32.6 % (42.0-52.0); Hemoglobin 10.1 gm/dL (13.5-18.0); Mean Cell Volume 88.8 fl (78-100); Mean Corpuscular Hemoglobin 27.5 pg (27-31); Mean Platelet Volume 9.9 fl (6.0-9.5); Platelet Count 346 K/mm3 (150-450); Red Blood Count 3.67 M/mm3 (4.7-6.0); Red Cell Distribution Width 16.7 % (11.5-14.0); White Blood Count 19.2 K/mm3 (4.0-10.5)
[2016-12-27 06:30] LABS: Total Cells Counted 100
[2016-12-27 06:33] LABS: Band 12 % (0-2.0); Dohle Bodies Trace; Immature Granulocyte 3 (0-1); Lymphocyte 4 % (20-51); Monocyte 8 % (0-9); Neutrophil 73 % (42-75); Platelet Estimate Normal (NORMAL)
[2016-12-27] MEDS ORDERED: ACETAMINOPHEN 325 MG TABLET PO PRN (07:45)
[2016-12-27] MEDS ORDERED: ASPIRIN 325 MG TABLET.DR PO SCH (09:00)
[2016-12-27] MEDS: traMADol HCL 50 MG TABLET PO PRN (10:18)
[2016-12-27] MEDS: MULTIVITAMIN/IRON/FOLIC ACID 1 TAB TABLET PO SCH (10:18)
[2016-12-27] MEDS: ASPIRIN 325 MG TABLET.DR PO SCH (10:19)
[2016-12-27] MEDS: PROPRANOLOL HCL 20 MG TABLET PO SCH ×4 (10:19→20:26)
[2016-12-27] MEDS: MEGESTROL ACETATE 40 MG/ML BTL PO SCH (10:22)
[2016-12-27] MEDS: metroNIDAZOLE/SODIUM CHLORIDE 500 MG/100 ML BAG IV SCH ×2 (13:56→20:27)
[2016-12-27 13:59] LABS: Urine Appearance Slightly Cloudy; Urine Bilirubin Negative (NEGATIVE); Urine Blood 150 /ul (NEGATIVE); Urine Color Amber; Urine Ketone 15 mg/dL (NEGATIVE); Urine Specific Gravity 1.025 SP.GR. (1.005-1.030); Urine pH 5.5 pH (5.0-7.0)
[2016-12-27 14:00] LABS: Urine Bacteria TRACE; Urine Nitrite Negative (NEGATIVE); Urine Protein 30 mg/dL (NEGATIVE); Urine RBC 0-5 /hpf (0-5); Urine Urobilinogen Normal (NORMAL); Urine WBC 0-5 /hpf (0-5)
[2016-12-27 14:01] LABS: Urine Amorphous Sediment Few - 1+ (NONE-FEW)
[2016-12-27] MEDS: LACTOBACILLUS ACIDOPHILUS 100 CAP BTL PO SCH (18:14)
[2016-12-27] MEDS: MIRTAZAPINE 15 MG TABLET PO SCH (20:27)
[2016-12-27] MEDS: POTASSIUM CHLORIDE 20 MEQ in DEXTROSE 5%-NORMAL SALINE 990 ML IV SCH (21:31)
[2016-12-28] MEDS: CEFEPIME HCL 2 GM in DEXTROSE 5 % IN WATER 100 ML IV SCH ×4 (01:28→14:59)
[2016-12-28] MEDS: metroNIDAZOLE/SODIUM CHLORIDE 500 MG/100 ML BAG IV SCH (02:49)
--- NOTE | 2016-12-28 07:26 | PN ---
Subjective - Date and Time Seen Date: 12/28/16 Time: 07:21 Subjective Narrative: I want to go home. I am tired of being in the hospital. Admits to cough and SOB. Objective - Review of Systems Generalized/Overall Review: Reports: Malaise EENTM: Reports: No Symptoms Reported Respiratory: Reports: Cough, Shortness of Breath Cardiac: Reports: No Symptoms Reported Abdominal: Reports: Diarrhea Genitourinary Symptoms: Reports: No Symptoms Reported Musculoskeletal Complaints: Reports: No Symptoms Reported Neurological: Reports: No Symptoms Reported Skin: Reports: No Symptoms Reported Endocrine: Reports: No Symptoms Reported Misc: All systems neg except as marked - Vitals Vitals: Last Vital Signs Selected Entries 12/28/16 06:45 Temperature 36.4 C L Temperature Oral Source Pulse Rate 63 Respiratory 18 Rate Blood Pressure 134/70 Blood Pressure Supine Position O2 Sat by Pulse 98 Oximetry Oxygen Delivery Room Air Method - Abnormal Lab Findings Abnormal Lab Findings: Abnormal Lab Results 12/27/16 12/27/16 Range/Units 10:10 13:30 Urine Protein 30 H (NEGATIVE) mg/dL Urine Blood 150 H (NEGATIVE) /ul Stl C.difficile Tox A&B Positive H (Negative) - Exam Constitutional: Present: Oriented x3, Cooperative, Well developed, No distress, Somnolent, Elderly ENT Exam: Present: normal ENT inspection, hearing grossly normal Neck: Present: normal inspection Respiratory: Present: rhonchi Cardiovascular/Chest: Present: regular rate, rhythm, no murmur Abdomen: Present: Normal bowel sounds, soft, nontender, nondistended, no rebound tenderness, no hepatospenomegaly, no masses Extremity: Present: normal inspection, no pedal edema Skin Exam: Present: normal color, warm/dry, no cyanosis Neurologic: Present: oriented x 3 Appearance: Present: appropriate appearance, neat, no memory impairment Eye contact: Present: cooperative, good eye contact, normal speech Assessment/Plan - Problems/Diagnosis (1) C. difficile colitis Problem: Acute (2) Pneumonia Problem: Acute Qualifiers: Laterality: left (3) Malnutrition Problem: Chronic Qualifiers: Malnutrition type: protein-calorie malnutrition (4) Nicotine abuse Problem: Chronic
[2016-12-28 07:28] LABS: Hematocrit 29.4 % (42.0-52.0); Hemoglobin 9.2 gm/dL (13.5-18.0); Mean Cell Volume 88.3 fl (78-100); Mean Corpuscular Hemoglobin 27.6 pg (27-31); Mean Corpuscular Hgb Conc 31.3 g/dl (32-36); Mean Platelet Volume 9.2 fl (6.0-9.5); Platelet Count 318 K/mm3 (150-450); Red Blood Count 3.33 M/mm3 (4.7-6.0); Red Cell Distribution Width 16.7 % (11.5-14.0)
[2016-12-28 07:30] LABS: Total Cells Counted 100
[2016-12-28 07:37] LABS: Anion Gap 7.4 mmol/L (6.8-13.8); Calcium * 8.8 mg/dL (7.9-10.9); Carbon Dioxide 26.9 mmol/L (24-32.6); Estimated Creat Clear 73.8; Potassium 3.3 mmol/L (3.4-4.6)
[2016-12-28 07:45] LABS: Band 5 % (0-2.0); Eosinophil 3 % (0-3); Lymphocyte 20 % (20-51); Monocyte 2 % (0-9); Neutrophil 70 % (42-75); Neutrophil # 8.4 K/mm3 (1.3-6.0)
[2016-12-28 07:46] LABS: Hypochromia Trace; Macrocytosis 1+; Platelet Estimate Normal (NORMAL)
[2016-12-28] MEDS: traMADol HCL 50 MG TABLET PO PRN ×2 (08:14→19:20)
[2016-12-28] MEDS: metroNIDAZOLE 500 MG TABLET PO SCH ×3 (08:15→22:05)
[2016-12-28] MEDS: PROPRANOLOL HCL 20 MG TABLET PO SCH ×4 (08:16→20:14)
[2016-12-28] MEDS: ASPIRIN 325 MG TABLET.DR PO SCH (08:16)
[2016-12-28] MEDS: MULTIVITAMIN/IRON/FOLIC ACID 1 TAB TABLET PO SCH (08:16)
[2016-12-28] MEDS: LACTOBACILLUS ACIDOPHILUS 100 CAP BTL PO SCH ×3 (08:16→17:28)
[2016-12-28] MEDS: POTASSIUM CHLORIDE 20 MEQ in DEXTROSE 5%-NORMAL SALINE 990 ML IV SCH ×2 (09:05→19:19)
[2016-12-28] MEDS: ENOXAPARIN SODIUM 40 MG/0.4 ML SYRG SC SCH (11:59)
[2016-12-28] MEDS: MEGESTROL ACETATE 40 MG/ML BTL PO SCH (15:00)
[2016-12-28] MEDS: MIRTAZAPINE 15 MG TABLET PO SCH (20:14)
[2016-12-29] MEDS: CEFEPIME HCL 2 GM in DEXTROSE 5 % IN WATER 100 ML IV SCH ×4 (02:01→13:19)
[2016-12-29] MEDS: traMADol HCL 50 MG TABLET PO PRN (04:32)
[2016-12-29] MEDS: POTASSIUM CHLORIDE 20 MEQ in DEXTROSE 5%-NORMAL SALINE 990 ML IV SCH (05:51)
[2016-12-29] MEDS: metroNIDAZOLE 500 MG TABLET PO SCH ×3 (06:00→22:00)
[2016-12-29 06:01] LABS: Hematocrit 28.9 % (42.0-52.0); Mean Cell Volume 88.4 fl (78-100); Mean Corpuscular Hemoglobin 27.5 pg (27-31); Mean Corpuscular Hgb Conc 31.1 g/dl (32-36); Mean Platelet Volume 9.6 fl (6.0-9.5); Platelet Count 305 K/mm3 (150-450); Red Blood Count 3.27 M/mm3 (4.7-6.0); Red Cell Distribution Width 16.7 % (11.5-14.0); White Blood Count 10.6 K/mm3 (4.0-10.5)
[2016-12-29 06:04] LABS: Total Cells Counted 100
[2016-12-29 06:19] LABS: Anion Gap 11.9 mmol/L (6.8-13.8); BUN/Creatinine Ratio 18.7 (9.0-21.6); Calcium * 8.4 mg/dL (7.9-10.9); Carbon Dioxide 23.8 mmol/L (24-32.6); Estimated Creat Clear 74.6; Hypochromia Trace; Immature Granulocyte 1 (0-1); Lymphocyte 22 % (20-51); Monocyte 7 % (0-9); Neutrophil 70 % (42-75); Neutrophil # 7.4 K/mm3 (1.3-6.0); Platelet Estimate Normal (NORMAL); Potassium 3.7 mmol/L (3.4-4.6)
[2016-12-29 06:20] LABS: Macrocytosis Trace
[2016-12-29] MEDS: DEXTROSE 5%-0.5 NORMAL SALINE 1,000 ML IV PRN ×2 (07:56→18:53)
[2016-12-29] MEDS: MULTIVITAMIN/IRON/FOLIC ACID 1 TAB TABLET PO SCH (08:01)
[2016-12-29] MEDS: ASPIRIN 325 MG TABLET.DR PO SCH (08:01)
[2016-12-29] MEDS: PROPRANOLOL HCL 20 MG TABLET PO SCH ×4 (08:01→20:32)
[2016-12-29] MEDS: LACTOBACILLUS ACIDOPHILUS 100 CAP BTL PO SCH ×3 (08:01→17:25)
--- NOTE | 2016-12-29 08:14 | PN ---
Subjective - Date and Time Seen Date: 12/29/16 Time: 08:10 Subjective Narrative: Diarrhea better. Not walking. Objective - Review of Systems Generalized/Overall Review: Reports: Weakness, Malaise EENTM: Reports: No Symptoms Reported Respiratory: Reports: No Symptoms Reported Cardiac: Reports: No Symptoms Reported Abdominal: Reports: No Symptoms Reported Genitourinary Symptoms: Reports: No Symptoms Reported Musculoskeletal Complaints: Reports: No Symptoms Reported Neurological: Reports: No Symptoms Reported Skin: Reports: No Symptoms Reported Endocrine: Reports: No Symptoms Reported Misc: All systems neg except as marked - Vitals Vitals: Last Vital Signs Selected Entries 12/29/16 12/29/16 07:40 08:01 Temperature 37.1 C Temperature Oral Source Pulse Rate 64 Respiratory 18 Rate Blood Pressure 162/85 162/85 O2 Sat by Pulse 96 Oximetry Oxygen Delivery Room Air Method - Abnormal Lab Findings Abnormal Lab Findings: Abnormal Lab Results 12/29/16 12/29/16 Range/Units 05:20 05:20 WBC 10.6 H (4.0-10.5) K/mm3 RBC 3.27 L (4.7-6.0) M/mm3 Hgb 9.0 L (13.5-18.0) gm/dL Hct 28.9 L (42.0-52.0) % MCHC 31.1 L (32-36) g/dl RDW 16.7 H (11.5-14.0) % MPV 9.6 H (6.0-9.5) fl Neutrophils # (Manual) 7.4 H (1.3-6.0) K/mm3 Sodium 145 H (132-142) mmol/L Plasma Sodium 145 H (130-142) mmol/L Chloride 113 H (97-106) mmol/L Carbon Dioxide 23.8 L (24-32.6) mmol/L - Exam Constitutional: Present: Alert, Oriented x3, Cooperative ENT Exam: Present: hearing grossly normal, pharynx normal Neck: Present: normal inspection Respiratory: Present: normal breath sounds, no respiratory distress Cardiovascular/Chest: Present: regular rate, rhythm, no chest tenderness Abdomen: Present: Normal bowel sounds, soft, nontender, nondistended, no rebound tenderness, no hepatospenomegaly, no masses Extremity: Present: normal inspection, no pedal edema Skin Exam: Present: normal color, warm/dry, no cyanosis Neurologic: Present: alert, oriented x 3 Appearance: Present: appropriate appearance, neat Eye contact: Present: cooperative, good eye contact, normal speech Assessment/Plan Plan Narrative: Antibiotics. Ambulation. Labs. - Problems/Diagnosis (1) C. difficile colitis Problem: Acute (2) Pneumonia Problem: Acute Qualifiers: Laterality: left (3) Malnutrition Problem: Chronic Qualifiers: Malnutrition type: protein-calorie malnutrition (4) Nicotine abuse Problem: Chronic
[2016-12-29] MEDS: MEGESTROL ACETATE 40 MG/ML BTL PO SCH (08:21)
[2016-12-29] MEDS: ENOXAPARIN SODIUM 40 MG/0.4 ML SYRG SC SCH (11:40)
[2016-12-29] MEDS: MIRTAZAPINE 15 MG TABLET PO SCH (20:33)
[2016-12-30] MEDS: CEFEPIME HCL 2 GM in DEXTROSE 5 % IN WATER 100 ML IV SCH ×4 (01:30→14:44)
[2016-12-30] MEDS: traMADol HCL 50 MG TABLET PO PRN (02:10)
[2016-12-30] MEDS: DEXTROSE 5%-0.5 NORMAL SALINE 1,000 ML IV PRN ×2 (05:33→16:26)
[2016-12-30 06:02] LABS: Hematocrit 31.2 % (42.0-52.0); Hemoglobin 9.8 gm/dL (13.5-18.0); Mean Cell Volume 87.9 fl (78-100); Mean Corpuscular Hemoglobin 27.6 pg (27-31); Mean Corpuscular Hgb Conc 31.4 g/dl (32-36); Mean Platelet Volume 9.7 fl (6.0-9.5); Platelet Count 354 K/mm3 (150-450); Red Blood Count 3.55 M/mm3 (4.7-6.0); Red Cell Distribution Width 16.6 % (11.5-14.0); White Blood Count 13.8 K/mm3 (4.0-10.5)
[2016-12-30 06:07] LABS: Total Cells Counted 100
[2016-12-30 06:12] LABS: Anion Gap 11.3 mmol/L (6.8-13.8); BUN/Creatinine Ratio 13.5 (9.0-21.6); Calcium * 8.8 mg/dL (7.9-10.9); Carbon Dioxide 22.4 mmol/L (24-32.6); Estimated Creat Clear 76.3; Potassium 3.7 mmol/L (3.4-4.6)
[2016-12-30 06:23] LABS: Atypical (Reactive) Lymph 1 % (0-2); Band 2 % (0-2.0); Immature Granulocyte 1 (0-1); Lymphocyte 22 % (20-51); Monocyte 3 % (0-9); Neutrophil 71 % (42-75); Neutrophil # 9.8 K/mm3 (1.3-6.0)
[2016-12-30 06:24] LABS: Platelet Estimate Normal (NORMAL); RBC Morphology Normal (NORMAL)
[2016-12-30] MEDS: metroNIDAZOLE 500 MG TABLET PO SCH ×3 (07:39→22:43)
--- NOTE | 2016-12-30 07:47 | PN ---
Subjective - Date and Time Seen Date: 12/30/16 Time: 07:45 Subjective Narrative: Diarrhea better. Walking better. Eating better. WBC higher. Objective - Review of Systems Generalized/Overall Review: Reports: No Symptoms Reported EENTM: Reports: No Symptoms Reported Respiratory: Reports: No Symptoms Reported Cardiac: Reports: No Symptoms Reported Abdominal: Reports: No Symptoms Reported Genitourinary Symptoms: Reports: No Symptoms Reported Musculoskeletal Complaints: Reports: No Symptoms Reported Neurological: Reports: No Symptoms Reported Skin: Reports: No Symptoms Reported Endocrine: Reports: No Symptoms Reported Misc: All systems neg except as marked - Vitals Vitals: Last Vital Signs Selected Entries Selected Entries 12/30/16 03:00 Temperature 36.6 C Temperature Oral Source Pulse Rate 74 Respiratory 18 Rate Blood Pressure 114/72 Blood Pressure Supine Position O2 Sat by Pulse 96 Oximetry Oxygen Delivery Room Air Method - Abnormal Lab Findings Abnormal Lab Findings: Abnormal Lab Results 12/30/16 12/30/16 Range/Units 05:35 05:35 WBC 13.8 H D (4.0-10.5) K/mm3 RBC 3.55 L (4.7-6.0) M/mm3 Hgb 9.8 L (13.5-18.0) gm/dL Hct 31.2 L (42.0-52.0) % MCHC 31.4 L (32-36) g/dl RDW 16.6 H (11.5-14.0) % MPV 9.7 H (6.0-9.5) fl Neutrophils # (Manual) 9.8 H (1.3-6.0) K/mm3 Chloride 110 H (97-106) mmol/L Carbon Dioxide 22.4 L (24-32.6) mmol/L - Exam Constitutional: Present: Alert, Oriented x3, Cooperative, Well developed, No distress ENT Exam: Present: normal ENT inspection, hearing grossly normal Neck: Present: normal inspection Respiratory: Present: chest non-tender, lungs clear, no respiratory distress, rhonchi Cardiovascular/Chest: Present: no chest tenderness Abdomen: Present: Normal bowel sounds, soft, nontender, nondistended, no rebound tenderness, no hepatospenomegaly, no masses Extremity: Present: normal range of motion, non-tender, normal inspection, no pedal edema, no calf tenderness Skin Exam: Present: normal color, warm/dry, no cyanosis Neurologic: Present: alert, oriented x 3 Appearance: Present: appropriate appearance, neat Eye contact: Present: cooperative Assessment/Plan Plan Narrative: Improving. Watch wbc count. possibly home tomorrow. - Problems/Diagnosis (1) C. difficile colitis Problem: Acute (2) Pneumonia Problem: Acute Qualifiers: Laterality: left (3) Malnutrition Problem: Chronic Qualifiers: Malnutrition type: protein-calorie malnutrition (4) Nicotine abuse Problem: Chronic
[2016-12-30] MEDS: PROPRANOLOL HCL 20 MG TABLET PO SCH ×4 (08:48→21:33)
[2016-12-30] MEDS: ASPIRIN 325 MG TABLET.DR PO SCH (08:50)
[2016-12-30] MEDS: MEGESTROL ACETATE 40 MG/ML BTL PO SCH (08:51)
[2016-12-30] MEDS: MULTIVITAMIN/IRON/FOLIC ACID 1 TAB TABLET PO SCH (08:51)
[2016-12-30] MEDS: LACTOBACILLUS ACIDOPHILUS 100 CAP BTL PO SCH ×3 (08:51→16:27)
[2016-12-30] MEDS: ENOXAPARIN SODIUM 40 MG/0.4 ML SYRG SC SCH (11:12)
[2016-12-30] MEDS: MIRTAZAPINE 15 MG TABLET PO SCH (21:33)
[2016-12-31] MEDS: traMADol HCL 50 MG TABLET PO PRN (02:20)
[2016-12-31] MEDS: CEFEPIME HCL 2 GM in DEXTROSE 5 % IN WATER 100 ML IV SCH ×2 (02:33)
[2016-12-31] MEDS: DEXTROSE 5%-0.5 NORMAL SALINE 1,000 ML IV PRN (03:42)
[2016-12-31 05:57] LABS: Anion Gap 9.3 mmol/L (6.8-13.8); Calcium * 8.5 mg/dL (7.9-10.9); Carbon Dioxide 25.1 mmol/L (24-32.6); Estimated Creat Clear 74.6; Potassium 3.4 mmol/L (3.4-4.6)
[2016-12-31 05:58] LABS: Hematocrit 28.8 % (42.0-52.0); Hemoglobin 9.4 gm/dL (13.5-18.0); Mean Cell Volume 87.5 fl (78-100); Mean Corpuscular Hemoglobin 28.6 pg (27-31); Mean Corpuscular Hgb Conc 32.6 g/dl (32-36); Mean Platelet Volume 10.5 fl (6.0-9.5); Platelet Count 324 K/mm3 (150-450); Red Blood Count 3.29 M/mm3 (4.7-6.0); Red Cell Distribution Width 16.8 % (11.5-14.0); White Blood Count 13.7 K/mm3 (4.0-10.5)
[2016-12-31 06:33] LABS: Neutrophil # 8.8 K/mm3 (1.3-6.0); Neutrophil % 64.5 % (42-75.0)
[2016-12-31 06:34] LABS: Total Cells Counted 100
[2016-12-31 06:37] LABS: Band 2 % (0-2.0); Eosinophil 2 % (0-3); Lymphocyte 25 % (20-51); Monocyte 3 % (0-9); Neutrophil 68 % (42-75); Neutrophil # 9.3 K/mm3 (1.3-6.0)
[2016-12-31 06:38] LABS: Platelet Estimate Normal (NORMAL); RBC Morphology Normal (NORMAL)
[2016-12-31 06:50] VITALS: BP 146/97
[2016-12-31] MEDS: metroNIDAZOLE 500 MG TABLET PO SCH (07:55)
--- NOTE | 2016-12-31 07:55 | DS ---
(1) C. difficile colitis Problem: Acute (2) Pneumonia Problem: Acute Qualifiers: Laterality: left (3) Malnutrition Problem: Chronic Qualifiers: Malnutrition type: protein-calorie malnutrition (4) Nicotine abuse Problem: Chronic Description of Stay: Following admission started on antibiotics for pneumonia. Then developed diarrhea which turned out to be C. dif. Started on Flagyl for C. dif. No diarrhea for the last 3 days. Feeling good and eating well for the last 3 days. Walking well for the last three days. WBC went up 2 days ago, but leveled off today. Will follow as outpatient. Procedures Performed: none Discharge Disposition: Home self care Disposition: Home self-care Condition: Stable Discharge Diet: General/regular food Referrals: Zach Peterson MD [Primary Care Provider] - Problem Oriented Discharge Instructions to Patient/Family: Pneumonitis, Clostridium Difficile Infection Additional Patient Instructions (free text): Please make TCM appointment at discharge, if applicable. Thank you! Hailee @ [phone]. [facility] ongoing, please call and fax discharge information at discharge. Follow up Dr. Young 1 week. [facility] 1 week. Prescriptions (Any new or edited meds): Cefuroxime Axetil [Cefuroxime] 500 mg PO BID #20 tablet metroNIDAZOLE [Flagyl] 500 mg PO Q8H #42 tablet Propranolol HCl [Inderal] 20 mg PO QID #120 tablet Complete Home Medications List: Complete Home Medication List: Acetaminophen [Tylenol] 650 mg PO QID PRN #1 tablet 12/25/16 Megestrol Acetate [Megace Suspension] 800 mg PO DAILY #1 btl 12/25/16 Mirtazapine [Remeron] 30 mg PO HS #30 tablet 12/25/16 Multivit,Iron,Mins/Folic Acid [Centrum Specialist Heart Tab] 1 each PO DAILY # 30 tablet 12/25/16 traMADol HCL [Ultram] 50 mg PO QID PRN #30 tablet 12/25/16 Aspirin [Aspirin Enteric Coated] 325 mg PO DAILY tablet. 12/31/16 Cefuroxime Axetil [Cefuroxime] 500 mg PO BID #20 tablet 12/31/16 Mag Hydrox/Aluminum Hyd/Simeth [Maalox Plus Suspension] 30 ml PO Q6H PRN udc Propranolol HCl [Inderal] 20 mg PO QID #120 tablet 12/31/16 metroNIDAZOLE [Flagyl] 500 mg PO Q8H #42 tablet 12/31/16
[2016-12-31] MEDS: MULTIVITAMIN/IRON/FOLIC ACID 1 TAB TABLET PO SCH (09:56)
[2016-12-31] MEDS: ASPIRIN 325 MG TABLET.DR PO SCH (09:56)
[2016-12-31] MEDS: LACTOBACILLUS ACIDOPHILUS 100 CAP BTL PO SCH (09:56)
[2016-12-31] MEDS: PROPRANOLOL HCL 20 MG TABLET PO SCH (09:56)
[2016-12-31] MEDS: MEGESTROL ACETATE 40 MG/ML BTL PO SCH (09:56)
== END 2016-12-31 10:45 | disposition home health service (06) | DRG 371 ==
LOC: ER 00:27 → MS 01:44 → OBSVTOIN 12-28 07:18
PROVIDERS: ADMIT Nurse Practitioner; ATTEND Allergy & Immunology
DX: A04.72 Enterocolitis due to Clostridium difficile, not specified as recurrent (principal); J18.9 Pneumonia, unspecified organism; E46 Unspecified protein-calorie malnutrition; Z68.1 Body mass index [BMI] 19.9 or less, adult; R53.1 Weakness; N40.0 Benign prostatic hyperplasia without lower urinary tract symptoms; F17.290 Nicotine dependence, other tobacco product, uncomplicated; Z79.82 Long term (current) use of aspirin
CPT/HCPCS: 36415; 71010; 80048; 80053; 81001; 83605; 84145; 85007; 85025; 86140; 87040; 87493; 97110; 97116; 97162; 97165; 97530; 97535; 99284; G0378

== ENCOUNTER 2017-01-05 02:32 | Emergency (ER) | payer MEDICARE ==
--- NOTE | 2017-01-05 02:41 | ERNOTE ---
Medical Problem HPI - General Chief Complaint: Fall Time Seen by Provider: 01/05/17 02:38 Source: patient, EMS Exam Limitations: no limitations - Immun/Allergies/Home Medications Immunizations: IMMUNIZATION HX Immunizations Up to Date Yes History of Influenza Vaccine No Hx Pneumococcal Vaccination Yes Allergies/Adverse Reactions: Allergies Iodinated Contrast- Oral and IV Dye [Iodinated Contrast Media - IV Dye] Allergy (Severe, Verified 12/27/16 00:28) Anaphylaxis coconut Allergy (Verified 12/27/16 00:28) Home Medications: HOME MEDICATIONS Acetaminophen [Tylenol] 650 mg PO QID PRN #1 tablet 12/25/16 [Last Taken Unknown ] Megestrol Acetate [Megace Suspension] 800 mg PO DAILY #1 btl 12/25/16 [Last Taken Unknown] Mirtazapine [Remeron] 30 mg PO HS #30 tablet 12/25/16 [Last Taken Unknown] Multivit,Iron,Mins/Folic Acid [Centrum Specialist Heart Tab] 1 each PO DAILY # 30 tablet 12/25/16 [Last Taken Unknown] traMADol HCL [Ultram] 50 mg PO QID PRN #30 tablet 12/25/16 [Last Taken Unknown] Aspirin [Aspirin Enteric Coated] 325 mg PO DAILY tablet. 12/31/16 [Last Taken Unknown] Cefuroxime Axetil [Cefuroxime] 500 mg PO BID #20 tablet 12/31/16 [Last Taken Unknown] Mag Hydrox/Aluminum Hyd/Simeth [Maalox Plus Suspension] 30 ml PO Q6H PRN udc [Last Taken Unknown] Propranolol HCl [Inderal] 20 mg PO QID #120 tablet 12/31/16 [Last Taken Unknown] metroNIDAZOLE [Flagyl] 500 mg PO Q8H #42 tablet 12/31/16 [Last Taken Unknown] - History of Present History Narrative: Pt fell earlier today, denies any injuries. Severity: moderate Review of Systems - Review of Systems Constitutional: Present: recent illness - pneumonia, fatigue EYE: Present: no symptoms reported ENT: Present: no symptoms reported Respiratory: Present: cough Cardiology: Present: edema Gastrointestinal/Abdominal: Present: no symptoms reported Genitourinary: Present: frequency, dysuria Musculoskeletal: Present: no symptoms reported Skin: Absent: rash Neurological: Absent: headache, numbness Endocrine: Present: excessive sweating Hematologic/Lymphatic: Present: no symptoms reported Psych: Present: no symptoms reported - Patient's Past Medical History Patient History - Medical: Other Patient History - Cardiac/Respiratory: Other Patient History - Cancer: No Hx of Cancer Patient History - Surgical Procedures: Colonoscopy, Total Hip Replacement, Total Knee Replacement, Other Patient History - Other: None - Family History Mother Family History - Medical: History Unknown Family History - Cardiac/Respiratory: History Unknown Family History - Cancer: History Unknown Father Family History - Medical: History Unknown Family History - Cardiac/Respiratory: History Unknown Family History - Cancer: History Unknown Sister Family History - Medical: History Unknown Family History - Cardiac/Respiratory: History Unknown Family History - Cancer: Breast Brother Family History - Medical: History Unknown Family History - Cardiac/Respiratory: Myocardial Infarction Family History - Cancer: Thyroid - Social History Abuse History: No History of abuse Psych History: No pertinent hx - Immunizations Immunizations Up to Date: Yes Hx Pneumococcal Vaccination: Yes History of Influenza Vaccine: No Physical Exam - Physical Exam General Appearance: Present: wd/wn, mild distress Head Exam: Present: normal inspection, no evidence of injury Eye Exam: Normal inspection: bilateral, PERRL: bilateral, EOMI: bilateral Ears, Nose, Throat: Present: normal ENT inspection Neck: Present: normal inspection, nontender Respiratory: Present: no respiratory distress, no accessory muscle use, lungs clear Cardiovascular/Chest: Present: regular rate, rhythm, no murmur Gastrointestinal/Abdominal: Present: normal bowel sounds, nontender, nondistended, soft Extremity Exam: Present: extremity edema - minimal Neurological Exam: Present: alert, oriented, normal mood/affect, no motor/ sensory deficits Skin Exam: Present: normal color, warm/dry Lymphatic Exam: Present: no adenopathy ED Progress - Results and Orders Patient's Lab Results:: I have reviewed the patient's lab results. Results and Orders: Laboratory Tests 01/05/17 01/05/17 01/05/17 02:30 02:41 04:19 WBC 11.0 H Hgb 9.8 L Hct 30.9 L Plt Count 366 Sodium 142 Potassium 3.9 Chloride 107 H BUN 13 Creatinine 0.87 Calcium 9.0 Total Bilirubin 0.5 AST 17 ALT 14 L Alkaline Phosphatase 109 Troponin I Less than 0.017 Total Protein 6.3 Albumin 2.5 L Urine Color Yellow Urine Appearance Clear Urine pH 7.5 Ur Specific [place] 1.010 Urine Protein Negative Urine Glucose (UA) Negative Urine Ketones Negative Urine Blood Negative Urine Nitrate Negative Urine Bilirubin Negative Urine Urobilinogen Normal Ur Leukocyte Esterase Negative Urine RBC None seen Urine WBC None seen Ur Epithelial Cells 0-5 Urine Bacteria None seen Urine Culture Comments No culture indicated - Vital Signs Patient's Vital Signs:: I have reviewed the patient's vital signs. - X-Ray X-Ray #1 X-Ray: chest Interpretation: Interp. by me X-ray Comments: Comparison 12/27/16: right basilar infiltrate improved, some residual in the greater fissure. Departure Clinical Impression: Generalized weakness Malnutrition Qualifiers: Malnutrition type: unspecified type Qualified Code(s): E46 - Unspecified protein-calorie malnutrition - Departure Disposition: Home Follow Up Needed Condition: Good Instructions: Fatigue Additional Instructions: See your primary care provider as scheduled. Return to ER as needed.
[2017-01-05 02:48] LABS: Hematocrit 30.9 % (42.0-52.0); Hemoglobin 9.8 gm/dL (13.5-18.0); Mean Cell Volume 89.8 fl (78-100); Mean Corpuscular Hemoglobin 28.5 pg (27-31); Mean Corpuscular Hgb Conc 31.7 g/dl (32-36); Mean Platelet Volume 9.1 fl (6.0-9.5); Platelet Count 366 K/mm3 (150-450); Red Blood Count 3.44 M/mm3 (4.7-6.0); Red Cell Distribution Width 17.8 % (11.5-14.0)
[2017-01-05 02:51] LABS: Total Cells Counted 100
[2017-01-05 03:10] LABS: ALT 14 U/L (19-67); AST 17 U/L (0-48); Albumin * 2.5 gm/dl (3.4-5.0); Alkaline Phosphatase * 109 U/L (50-170); Anion Gap 10.3 mmol/L (6.8-13.8); BUN/Creatinine Ratio 14.9 (9.0-21.6); Bilirubin, Total 0.5 mg/dL (0.0-1.1); Blood Urea Nitrogen 13 mg/dL (6-23); Carbon Dioxide 28.6 mmol/L (24-32.6); Chloride 107 mmol/L (97-106); Glucose * 101 mg/dL (70-110); Potassium 3.9 mmol/L (3.4-4.6); Sodium 142 mmol/L (132-142); Total Protein 6.3 gm/dL (6.2-8.2)
[2017-01-05 03:14] LABS: Ca. Corrected For Albumin 9.9 mg/dL (8.4-10.2)
[2017-01-05 03:15] LABS: Troponin I Less than 0.017 ng/ml (0.00-0.10)
[2017-01-05 03:27] LABS: Eosinophil 1 % (0-3); Immature Granulocyte 6 (0-1); Lymphocyte 24 % (20-51); Neutrophil 69 % (42-75); Neutrophil # 7.6 K/mm3 (1.3-6.0); Platelet Estimate Normal (NORMAL)
[2017-01-05 03:29] LABS: Hypochromia 1+; Microcytosis 1+
[2017-01-05 04:26] LABS: Urine Bilirubin Negative (NEGATIVE); Urine Blood Negative /ul (NEGATIVE); Urine Ketone Negative (NEGATIVE); Urine Nitrite Negative (NEGATIVE); Urine Protein Negative (NEGATIVE); Urine Urobilinogen Normal (NORMAL); Urine pH 7.5 pH (5.0-7.0)
[2017-01-05 04:27] LABS: Urine Appearance Clear; Urine Bacteria None Seen; Urine Color Yellow; Urine RBC None Seen /hpf (0-5); Urine WBC None Seen /hpf (0-5)
[2017-01-05 05:29] VITALS: BP 164/95
== END 2017-01-05 04:47 | disposition home or self-care (01) ==
LOC: ER 02:32
DX: R53.1 Weakness (principal); E46 Unspecified protein-calorie malnutrition